=== PATIENT | female | born 1945 | race Caucasian/White ===

== ENCOUNTER 2020-01-24 14:11 | Inpatient (IN) | payer OTHER ==
[~2020-01-24] VITALS: Ht 160 cm; Wt 72.0 kg
[2020-01-24] MEDS ORDERED: LEXAPRO (14:14)
[2020-01-24] MEDS ORDERED: SIMVASTATIN (14:14)
[2020-01-24] MEDS ORDERED: NORT75CA PO (14:14)
--- NOTE | 2020-01-24 14:28 | NUR ---
PT BIBA FOR PAIN TO LEFT HIP AFTER MGLF. PT ABLE TO MOVE LLE IN ALL DIRECTIONS BY SELF. GOOD PULSES. CMS INTACT. PT DENIES HITTING HEAD AND DENIES LOC. PT DOES NOT TAKE BLOOD THINNERS. PIV ESTABLISHED EN ROUTE AND [employer]G [employer] ADMINISTERED MAINTENANCE LEADER. PT CONNECTED TO ALL MONITORS. VSS. NO NEEDS EXPRESSED AT THIS TIME. CALL LIGHT WITHIN REACH. AWAITING EDMD ASSESSMENT.
[2020-01-24] MEDS ORDERED: ONDANSETRON 2MG/ML, 2ML IVPush ONE (15:30)
[2020-01-24] MEDS ORDERED: MORPHINE SULFATE 4 MG/ML, 1ML IVPush PRN (15:30)
[2020-01-24] MEDS ORDERED: MORPHINE SULFATE 4 MG/ML, 1ML ONE (15:36)
[2020-01-24] MEDS ORDERED: ONDANSETRON 2MG/ML, 2ML ONE (15:36)
--- NOTE | 2020-01-24 15:40 | NUR ---
DR. GOSS TO BS TO UPDATE ON RESULTS AND POC. PLAN TO ADMIT. PT REPORTS INCREASED PAIN. NEW ORDERS RECEIVED AND PAIN MEDICATION ADMINISTERED. PT REPORTS DECREASE IN PAIN. LABS DRAWN AND CXR COMPLETE. AWAITING RESULTS AND ADMIT ORDERS.
[2020-01-24 15:42] LABS: BASOPHILS # (AUTO) 0.02 x10^3/uL (0-0.1); BASOPHILS % (AUTO) 0 % (0-1); EOSINOPHILS # (AUTO) 0.09 x10^3/uL (0-0.4); EOSINOPHILS % (AUTO) 1 % (1-7); LYMPHOCYTES % (AUTO) 20 % (22-44); MD NO; MEAN CORPUSCULAR HEMOGLOBIN 29.1 pg (27.0-34.8); MEAN CORPUSCULAR HGB CONC 33.5 g/dL (32.4-35.8); MEAN CORPUSCULAR VOLUME 86.8 fL (80-100); MEAN PLATELET VOLUME 7.6 fL (7.4-10.4); MONOCYTES # (AUTO) 0.48 x10^3/uL (0.2-0.8); MONOCYTES % (AUTO) 7 % (2-9); NEUTROPHILS # (AUTO) 4.72 x10^3/uL (1.8-6.8); NEUTROPHILS % (AUTO) 71 % (42-75); PLATELET COUNT 236 x10^3/uL (130-400); RED BLOOD COUNT 5.09 x10^6/uL (3.82-5.3); RED CELL DISTRIBUTION WIDTH 14.3 % (9.6-15.2)
[2020-01-24 15:52] LABS: ALBUMIN 3.6 g/dL (3.4-5.0); ANION GAP 6 mmol/L (5-15); CALCIUM 9.2 mg/dL (8.5-10.1); CHLORIDE 109 mmol/L (98-107); CREATININE 0.87 mg/dL (0.55-1.02)
[2020-01-24] MEDS: LACTATED RINGERS 1,000 ML IV SCH (16:27)
[2020-01-24] MEDS ORDERED: BISACODYL 10 MG SUPP PR PRN (16:30)
[2020-01-24] MEDS ORDERED: ENALAPRILAT 1.25 MG/ML, 2ML IVPush PRN (16:30)
[2020-01-24] MEDS ORDERED: LABETALOL 5MG/ML, 20ML IVPush PRN (16:30)
--- NOTE | 2020-01-24 16:30 | NUR ---
FLUIDS HUNG PER MAR. PLEASE SEE MAR FOR INTERVENTIONS, RESTING ON GURNEY, DENIES ADDITIONAL NEEDS, EVEN AND UNLABORED RESPIRATIONS, EYES OPEN, CALL LIGHT WITHIN REACH, WAITING ON ADMIT BED, WCTM.
[2020-01-24 16:34] LABS: INTERNATIONAL NORMALIZED RATIO 0.97 (0.93-1.1); PROTHROMBIN TIME 10.3 Seconds (9.6-11.5)
--- NOTE | 2020-01-24 16:49 | NUR ---
SPOKE WITH PAOLA, RN HOUSE SUP, AT [facility]. PT DENIED
--- NOTE | 2020-01-24 17:21 | NUR ---
ORTHO DR AT BEDSIDE ASSESSING AND DISCUSSING PLAN OF CARE. NAD, EVEN AND UNLABORED RESPIRATIONS, PT CONVERSING WITH DR, CALL LIGHT WITHIN REACH, WCTM.
--- NOTE | 2020-01-24 18:02 | NUR ---
report called to [facility] pt rtg up to floor.
[2020-01-24 18:52] VITALS: BP 151/84
[2020-01-24 19:20] VITALS: BP 138/84
[2020-01-24] MEDS: SIMVASTATIN 40 MG TABLET PO SCH (20:52)
[2020-01-24] MEDS: morphine SULFATE 10 MG/ML, 1ML IVPush PRN (20:58)
[2020-01-24] MEDS: ACETAMINOPHEN 325 MG TABLET PO PRN (22:34)
[2020-01-25] MEDS: morphine SULFATE 10 MG/ML, 1ML IVPush PRN ×4 (00:03→14:15)
[2020-01-25 01:31] VITALS: BP 117/77
[2020-01-25] MEDS: LACTATED RINGERS 1,000 ML IV SCH ×3 (01:31→20:29)
[2020-01-25 05:52] LABS: BASOPHILS # (AUTO) 0.03 x10^3/uL (0-0.1); BASOPHILS % (AUTO) 1 % (0-1); EOSINOPHILS # (AUTO) 0.18 x10^3/uL (0-0.4); EOSINOPHILS % (AUTO) 3 % (1-7); LYMPHOCYTES % (AUTO) 21 % (22-44); MD NO; MEAN CORPUSCULAR HEMOGLOBIN 28.6 pg (27.0-34.8); MEAN CORPUSCULAR HGB CONC 32.7 g/dL (32.4-35.8); MEAN CORPUSCULAR VOLUME 87.2 fL (80-100); MONOCYTES # (AUTO) 0.71 x10^3/uL (0.2-0.8); MONOCYTES % (AUTO) 10 % (2-9); NEUTROPHILS # (AUTO) 4.83 x10^3/uL (1.8-6.8); NEUTROPHILS % (AUTO) 67 % (42-75); PLATELET COUNT 193 x10^3/uL (130-400); RED BLOOD COUNT 4.59 x10^6/uL (3.82-5.3); RED CELL DISTRIBUTION WIDTH 14.3 % (9.6-15.2)
[2020-01-25 06:03] LABS: ALANINE AMINOTRANSFERASE 22 U/L (12-78); ALBUMIN 2.8 g/dL (3.4-5.0); ANION GAP 5 mmol/L (5-15); CALCIUM 8.3 mg/dL (8.5-10.1); CHLORIDE 109 mmol/L (98-107)
[2020-01-25 06:06] LABS: ALKALINE PHOSPHATASE 96 U/L (45-117); BILIRUBIN,TOTAL 0.6 mg/dL (0.2-1.0); CREATININE 0.86 mg/dL (0.55-1.02); TOTAL PROTEIN 5.8 g/dL (6.4-8.2)
[2020-01-25 06:31] VITALS: BP 106/61
[2020-01-25] MEDS: ESCITALOPRAM 10MG TABLET PO SCH (07:33)
[2020-01-25] MEDS ORDERED: PROPOFOL 50 ML ONE (09:11)
[2020-01-25] MEDS ORDERED: FENTANYL PF 250 MCG/5ML ONE (09:11)
[2020-01-25] MEDS ORDERED: CEFAZOLIN 1,000 MG ONE (09:36)
[2020-01-25] MEDS ORDERED: ROCURONIUM 10 MG/ML,10ML ONE (09:36)
[2020-01-25] MEDS ORDERED: HYDROmorphone 2 MG/ML, 1ML IVPush PRN (10:30)
[2020-01-25] MEDS ORDERED: MIDAZOLAM 1 MG/ML, 2ML IV PRN (10:30)
[2020-01-25] MEDS ORDERED: PROMETHAZINE 25 MG/ML, 1ML IV PRN (10:30)
[2020-01-25] MEDS ORDERED: ONDANSETRON 2MG/ML, 2ML IV PRN (10:30)
[2020-01-25] MEDS ORDERED: EPHEDRINE 50 MG/ML, 1ML IM PRN (10:30)
[2020-01-25] MEDS ORDERED: ONDANSETRON ODT 8 MG PO PRN (10:30)
[2020-01-25] MEDS ORDERED: OXYcodone 5 MG/5 ML ORAL.SOL UDC PO PRN (10:30)
[2020-01-25] MEDS ORDERED: PROPOFOL 10 MG/ML, 20ML ONE (10:43)
[2020-01-25] MEDS ORDERED: SUCCINYLCHOLINE 20 MG/ML, 10ML ONE (10:43)
[2020-01-25] MEDS ORDERED: ONDANSETRON 2MG/ML, 2ML ONE (10:43)
[2020-01-25] MEDS ORDERED: FENTANYL PF 100 MCG/2ML ONE (11:07)
[2020-01-25] MEDS ORDERED: OXYcodone 5 MG/5 ML ORAL.SOL UDC ONE (11:07)
[2020-01-25] MEDS: FENTANYL PF 100 MCG/2ML IV PRN ×2 (11:10→11:25)
[2020-01-25 12:51] VITALS: BP 115/74
[2020-01-25] MEDS: OXYcodone IR 5MG TABLET PO PRN ×2 (16:27→21:31)
[2020-01-25 19:38] VITALS: BP 117/73
[2020-01-25] MEDS: SIMVASTATIN 40 MG TABLET PO SCH (20:29)
[2020-01-25] MEDS: NORTRIPTYLINE 25 MG CAPSULE PO SCH (20:29)
[2020-01-25 23:24] VITALS: BP 108/66
[2020-01-26 03:07] VITALS: BP 133/79
[2020-01-26] MEDS: OXYcodone IR 5MG TABLET PO PRN ×3 (03:30→20:24)
[2020-01-26] MEDS: LACTATED RINGERS 1,000 ML IV SCH ×3 (03:30→21:00)
[2020-01-26 06:30] VITALS: BP 112/74
[2020-01-26 06:35] LABS: BASOPHILS # (AUTO) 0.05 x10^3/uL (0-0.1); BASOPHILS % (AUTO) 1 % (0-1); EOSINOPHILS # (AUTO) 0.12 x10^3/uL (0-0.4); EOSINOPHILS % (AUTO) 1 % (1-7); LYMPHOCYTES # (AUTO) 1.17 x10^3/uL (1-3.4); LYMPHOCYTES % (AUTO) 11 % (22-44); MD NO; MEAN CORPUSCULAR HEMOGLOBIN 28.7 pg (27.0-34.8); MEAN CORPUSCULAR HGB CONC 33.5 g/dL (32.4-35.8); MEAN CORPUSCULAR VOLUME 85.7 fL (80-100); MONOCYTES # (AUTO) 0.82 x10^3/uL (0.2-0.8); MONOCYTES % (AUTO) 8 % (2-9); NEUTROPHILS # (AUTO) 8.17 x10^3/uL (1.8-6.8); NEUTROPHILS % (AUTO) 79 % (42-75); PLATELET COUNT 188 x10^3/uL (130-400); RED BLOOD COUNT 4.32 x10^6/uL (3.82-5.3); RED CELL DISTRIBUTION WIDTH 14.1 % (9.6-15.2)
[2020-01-26] MEDS: ENOXAPARIN 40 MG/0.4 ML SQ SCH (07:58)
[2020-01-26] MEDS: ESCITALOPRAM 10MG TABLET PO SCH (07:58)
[2020-01-26] MEDS: ACETAMINOPHEN 325 MG TABLET PO PRN ×2 (07:58→20:33)
[2020-01-26 13:40] VITALS: BP 90/53
[2020-01-26 19:57] VITALS: BP 93/61
[2020-01-26] MEDS: NORTRIPTYLINE 25 MG CAPSULE PO SCH (20:25)
[2020-01-26] MEDS: SIMVASTATIN 40 MG TABLET PO SCH (20:25)
[2020-01-26] MEDS: DOCUSATE 100 MG CAPSULE PO PRN (20:33)
[2020-01-27] MEDS: OXYcodone IR 5MG TABLET PO PRN ×5 (00:22→18:33)
[2020-01-27 01:57] VITALS: BP 90/60
[2020-01-27] MEDS: LACTATED RINGERS 1,000 ML IV SCH (05:57)
[2020-01-27 06:40] VITALS: BP 99/66
[2020-01-27] MEDS ORDERED: CALCIUM CARBONATE 500 MG TAB.CHEW PO PRN (07:00)
[2020-01-27] MEDS: ESCITALOPRAM 10MG TABLET PO SCH (08:50)
[2020-01-27] MEDS: DOCUSATE 100 MG CAPSULE PO PRN (08:50)
[2020-01-27] MEDS: ENOXAPARIN 40 MG/0.4 ML SQ SCH (08:50)
[2020-01-27] MEDS: ACETAMINOPHEN 325 MG TABLET PO PRN (10:33)
[2020-01-27 13:20] VITALS: BP 90/62
[2020-01-27 19:08] VITALS: BP 101/68
[2020-01-27] MEDS: SIMVASTATIN 40 MG TABLET PO SCH (21:08)
[2020-01-27] MEDS: NORTRIPTYLINE 25 MG CAPSULE PO SCH (21:08)
[2020-01-28 01:40] VITALS: BP 120/75
[2020-01-28] MEDS: OXYcodone IR 5MG TABLET PO PRN ×4 (02:07→14:49)
[2020-01-28 06:33] VITALS: BP 102/67
[2020-01-28] MEDS: ENOXAPARIN 40 MG/0.4 ML SQ SCH (08:03)
[2020-01-28] MEDS: ESCITALOPRAM 10MG TABLET PO SCH (08:03)
[2020-01-28] MEDS ORDERED: ACET-76 PO (11:02)
[2020-01-28] MEDS ORDERED: OXYC5TAB3 PO (11:02)
[2020-01-28] MEDS ORDERED: FLU VAC QS 19-20(4YR UP)CEL/PF 0.5 ML IM-VACC ONE (12:00)
[2020-01-28] MEDS ORDERED: FLU VACC QS2019-20 36MOS UP/PF 0.5 ML IM-VACC ONE (12:00)
[2020-01-28 12:31] VITALS: BP 104/68
== END 2020-01-28 14:50 | DRG 482 ==
LOC: ED 15:09 → 4NE 17:16
PROVIDERS: ADMIT Family Medicine; ATTEND Family Medicine
PROC: 0QS734Z Reposition Left Upper Femur with Internal Fixation Device, Percutaneous Approach (ICD-10-PCS; principal; 2020-01-25 09:00)
DX: S72.002A Fracture of unspecified part of neck of left femur, initial encounter for closed fracture (principal); W18.30XA Fall on same level, unspecified, initial encounter; Z66 Do not resuscitate; F41.9 Anxiety disorder, unspecified; F32.9 Major depressive disorder, single episode, unspecified; E78.5 Hyperlipidemia, unspecified; G47.00 Insomnia, unspecified; Z88.8 Allergy status to other drugs, medicaments and biological substances; Y93.89 Activity, other specified; Y92.89 Other specified places as the place of occurrence of the external cause; Y99.8 Other external cause status
CPT/HCPCS: 36415; 71045; 76000; 80048; 80053; 82040; 85025; 85610; 85730; 90686; 93005; 96374; C1713; G0378; J0690; J1650; J2405; J2704; J3010; J0330; J2270; J7120

== ENCOUNTER 2020-05-12 16:24 | Emergency (ER) | payer OTHER ==
[~2020-05-12] VITALS: Ht 157.5 cm; Wt 63.6 kg
[~2020-05-12 16:24] MED LIST: ACET-76 PO; LEXAPRO; NORT75CA PO; OXYC5TAB3 PO; SIMVASTATIN
[2020-05-12] MEDS ORDERED: MORPHINE SULFATE 4 MG/ML, 1ML ONE (17:26)
[2020-05-12] MEDS ORDERED: ONDANSETRON 2MG/ML, 2ML ONE (17:26)
[2020-05-12] MEDS ORDERED: SODIUM CHLORIDE FLUSH 10ML SYR IVF ONE ×2 (17:30→19:30)
[2020-05-12] MEDS ORDERED: ONDANSETRON 2MG/ML, 2ML IVPush ONE (17:30)
[2020-05-12] MEDS ORDERED: MORPHINE SULFATE 4 MG/ML, 1ML IVPush PRN (17:30)
[2020-05-12 17:33] LABS: BASOPHILS # (AUTO) 0.03 x10^3/uL (0-0.1); BASOPHILS % (AUTO) 0 % (0-1); EOSINOPHILS # (AUTO) 0.07 x10^3/uL (0-0.4); EOSINOPHILS % (AUTO) 1 % (1-7); LYMPHOCYTES # (AUTO) 2.24 x10^3/uL (1-3.4); LYMPHOCYTES % (AUTO) 27 % (22-44); MD NO; MEAN CORPUSCULAR HEMOGLOBIN 28.2 pg (27.0-34.8); MEAN CORPUSCULAR HGB CONC 33.1 g/dL (32.4-35.8); MEAN CORPUSCULAR VOLUME 85.2 fL (80-100); MEAN PLATELET VOLUME 8.3 fL (7.4-10.4); MONOCYTES # (AUTO) 0.69 x10^3/uL (0.2-0.8); MONOCYTES % (AUTO) 8 % (2-9); NEUTROPHILS # (AUTO) 5.19 x10^3/uL (1.8-6.8); NEUTROPHILS % (AUTO) 63 % (42-75); PLATELET COUNT 279 x10^3/uL (130-400); RED BLOOD COUNT 5.58 x10^6/uL (3.82-5.3); RED CELL DISTRIBUTION WIDTH 14.7 % (9.6-15.2)
[2020-05-12 17:41] LABS: CHLORIDE 107 mmol/L (98-107)
--- NOTE | 2020-05-12 17:47 | NUR ---
LATE ENTRY DUE TO PATIENT CARE: THIS IS A 74 YO FEMALE COMING IN WITH CHRONIC INTERMITTENT ABD PAIN, BECOMING MORE CONSISTENT THE PAST FEW WEEKS. PATIENT STATES PAIN IS LOCATED IN BILATERAL LOWER QUADRANTS RADIATING UP TO LUQ AND EPIGASTRIC REGION. PATIENT ALSO C/O INTERMITTENT N/V/D. PATIENT STATES SHE USED TO DRINK ALCOHOL EVERY DAY, VARYING AMOUNTS, HAS BEEN SOBER LAST TWO WEEKS. HAS BEEN SEEN AT [facility] AND HOSPITALIZED THERE FOR THIS RECURRENT ABD PAIN, NO DIFINITIVE DIAGNOSIS GIVEN AT THIS TIME. MONITORING IN PLACE, HYPERTENSIVE AT THIS TIME, ALL OTHER VSS. CALL LIGHT IN REACH. PATIENT MEDICATED PER EMAR , TOLERATED WELL. PATIENT TAKEN TO IMAGING
[2020-05-12 17:48] LABS: ALANINE AMINOTRANSFERASE 17 U/L (12-78); ALBUMIN 3.9 g/dL (3.4-5.0); ALKALINE PHOSPHATASE 107 U/L (45-117); ANION GAP 7 mmol/L (5-15); BILIRUBIN,TOTAL 0.6 mg/dL (0.2-1.0); CALCIUM 10.2 mg/dL (8.5-10.1); CREATININE 0.89 mg/dL (0.55-1.02); TOTAL PROTEIN 7.6 g/dL (6.4-8.2)
--- NOTE | 2020-05-12 17:59 | NUR ---
PATIENT AMBULATORY WITH STEADY GAIT TO RESTROOM TO OBTAIN UA
--- NOTE | 2020-05-12 18:11 | NUR ---
UA COLLECTED AND SENT
[2020-05-12 18:13] LABS: MICROSCOPIC NOT IND
[2020-05-12 18:31] VITALS: BP 155/99
[2020-05-12] MEDS ORDERED: OMNIPAQUE 350 MG/ML, 100ML BOTTLE ONE (18:50)
--- NOTE | 2020-05-12 19:27 | NUR ---
TASK RN: PT REPORTS IMPROVED S/S SINCE BEING MEDICATED. DC EDUCATION PROVIDED, PT DEMONSTRATES UNDERSTANDING. PT AMBUALTED STEADILY TO DC WHERE SON WILL MEET HER TO TRANSPORT HOME.
== END 2020-05-12 19:30 | disposition home or self-care (01) ==
LOC: ED 19:24
DX: G89.29 Other chronic pain (principal); R10.84 Generalized abdominal pain; R19.7 Diarrhea, unspecified; Z90.49 Acquired absence of other specified parts of digestive tract
CPT/HCPCS: 36415; 74021; 74177; 80053; 81003; 83690; 85025; 96374; 96375; 99284; J2270; J2405; Q9967